=== PATIENT | male | born 1980 | race Caucasian/White ===

== ENCOUNTER 2023-10-28 07:28 | Inpatient (IN) | payer OTHER, MEDICAID ==
[~2023-10-28] VITALS: Ht 185.4 cm; Wt 93.0 kg
[2023-10-28] MEDS: MORPHINE SULFATE 4 MG/ML INJ (FOR IV/IM USE) IV STA (08:32)
[2023-10-28] MEDS: PANTOPRAZOLE SODIUM 40 MG/VIAL IV STA (08:32)
[2023-10-28] MEDS: ONDANSETRON HCL 4MG/2ML INJ IV STA (08:34)
[2023-10-28] MEDS: SODIUM CHLORIDE 0.9% 1,000 ML IV ONE (08:35)
[2023-10-28 08:41] LABS: HEMATOCRIT. 33.2 % (42.0-52.0); HEMOGLOBIN. 10.9 g/dL (14.0-18.0); MEAN CORPUSCULAR HEMOGLOBIN 27.6 pg (28.0-32.0); MEAN CORPUSCULAR HGB CONC 32.8 g/dL (31.0-37.0); MEAN PLATELET VOLUME 6.5 fl (7.4-10.4); PLATELET 897 x1000/uL (130-400); RED BLOOD CELL COUNT 3.95 mill/uL (4.7-6.1); RED CELL DISTRIBUTION WIDTH 21.5 % (11.6-14.6); WHITE BLOOD COUNT 24.3 x1000/uL (4.5-11.0)
[2023-10-28 08:43] LABS: DIFFERENTIAL COMMENT 1
[2023-10-28 08:51] LABS: PROTHROMBIN TIME 11.1 sec (9.6-11.0)
[2023-10-28] MEDS: OCTREOTIDE ACETATE 50 MCG/ML 1ML IV ONE (08:51)
[2023-10-28] MEDS: OCTREOTIDE 1,000 MCG in SODIUM CHLORIDE 0.9% 100 ML IV ONE ×2 (09:00→09:19)
[2023-10-28] MEDS: CEFTRIAXONE 2GM/50ML 50 ML IV STA (09:31)
[2023-10-28 09:35] LABS: LACTIC ACID 2.3 mmol/L (0.4-2.0)
[2023-10-28 10:10] LABS: NUCLEATED RED BLOOD CELLS 1 /100 WBC; PLATELET ESTIMATE INCREASED
[2023-10-28 10:11] LABS: ANISOCYTOSIS 3+
[2023-10-28 10:51] LABS: CHLORIDE 102 mEq/L (98-107); POTASSIUM 4.6 mEq/L (3.5-5.1); SODIUM 134 mEq/L (136-145)
[2023-10-28 10:52] LABS: CARBON DIOXIDE 28 mEq/L (21-32)
[2023-10-28 10:53] LABS: CALCIUM 8.6 mg/dL (8.7-10.4)
[2023-10-28 10:57] LABS: CREATININE 0.9 mg/dL (0.6-1.3); GLUCOSE 110 mg/dL (70-105)
[2023-10-28 10:58] LABS: UREA NITROGEN BLOOD 18 mg/dL (9-23)
[2023-10-28 10:59] LABS: ALANINE AMINOTRANSFERASE 41 IU/L (10-49); ALBUMIN 2.7 g/dL (3.2-4.8); ASPARTATE AMINOTRANSFERASE 70 IU/L (<34)
[2023-10-28 11:00] LABS: BILIRUBIN DIRECT 0.2 mg/dL (<=3.0); BILIRUBIN TOTAL 0.3 mg/dL (0.1-1.0); PROTEIN TOTAL 4.9 g/dL (6.0-8.3)
[2023-10-28] MEDS ORDERED: IPRATROPIUM/ALBUTEROL 0.5-3(2.5)MG/3ML NEB HHN PRN (12:15)
[2023-10-28] MEDS ORDERED: MAGNESIUM/ALUMINUM HYDROXIDE/SIMETHICONE 30ML UDC PO PRN (12:15)
[2023-10-28] MEDS ORDERED: DOCUSATE SODIUM 100MG CAPSULE PO PRN (12:15)
[2023-10-28] MEDS ORDERED: GUAIFENESIN 200MG/10ML SUGAR FREE UDC PO PRN (12:15)
[2023-10-28] MEDS: ACETAMINOPHEN 325MG TABLET PO PRN (12:55)
[2023-10-28] MEDS: METRONIDAZOLE 500 MG PREMIX 100 ML IV SCH ×2 (13:13→23:37)
[2023-10-28] MEDS: CEFTRIAXONE 1GM/50ML 50 ML IV SCH (14:28)
[2023-10-28] MEDS: KETOROLAC 30MG/ML VIAL IV PRN (16:02)
[2023-10-28] MEDS: SODIUM CHLORIDE 0.9% 1,000 ML IV SCH (16:03)
[2023-10-28] MEDS: ONDANSETRON HCL 4MG/2ML INJ IV PRN (16:03)
[2023-10-28] MEDS ORDERED: BUPRENORPHINE 8MG SL TABLET SL SCH (17:00)
[2023-10-28 17:35] LABS: HEMATOCRIT 30.9 % (42.0-52.0); HEMOGLOBIN 10.3 g/dL (14.0-18.0)
[2023-10-28 19:24] VITALS: BP 91/52; PULSE 74; RESP 22; TEMP 36.72516; O2SAT 99
[2023-10-28 20:00] VITALS: BP 94/55; PULSE 83; RESP 18; TEMP 36.61404; O2SAT 97
[2023-10-28 21:56] LABS: IRON 73 ug/dL (65-175)
[2023-10-28 21:59] LABS: TOTAL IRON BINDING CAPACITY 163 ug/dl (250-425)
[2023-10-28 22:02] LABS: FERRITIN 657 ng/mL (22-322); FOLIC ACID (FOLATE) SERUM > 20.00 ng/mL (>5.38); VITAMIN B12 SERUM 485 pg/mL (211-911)
[2023-10-28 22:16] VITALS: BP 94/55; PULSE 83; RESP 18; TEMP 36.6404
[2023-10-28] MEDS: LORAZEPAM 2MG/ML INJ IV PRN (23:17)
[2023-10-29] VITALS: BP 105/65; PULSE 69; RESP 18; TEMP 36.55848; O2SAT 99
[2023-10-29] MEDS: OCTREOTIDE 1,000 MCG in SODIUM CHLORIDE 0.9% 98 ML IV SCH (01:12)
[2023-10-29] MEDS: BUPRENORPHINE 2MG SL TABLET SL SCH (01:12)
[2023-10-29 04:00] VITALS: BP 91/51; PULSE 72; RESP 18; TEMP 36.3918; O2SAT 99
[2023-10-29 06:30] LABS: ALANINE AMINOTRANSFERASE 27 IU/L (10-49); TRIGLYCERIDE 109 mg/dL (0-150)
[2023-10-29 06:31] LABS: LDL CHOLESTEROL 31 mg/dL (5-100); THYROID STIMULATING HORMONE 1.11 uIU/mL (0.55-4.78)
[2023-10-29 06:32] LABS: ALBUMIN 2.4 g/dL (3.2-4.8); ASPARTATE AMINOTRANSFERASE 26 IU/L (<34); BILIRUBIN TOTAL 0.2 mg/dL (0.1-1.0); CHOLESTEROL 72 mg/dL (<200); HDL CHOLESTEROL 27 mg/dL (>55); PROTEIN TOTAL 4.4 g/dL (6.0-8.3); T4 FREE 0.62 ng/dL (0.89-1.76)
[2023-10-29 06:40] LABS: BILIRUBIN DIRECT < 0.1 mg/dL (<=3.0)
[2023-10-29 06:51] LABS: HEPATITIS B SURFACE ANTIGEN NEGATIVE (Negative)
[2023-10-29 07:03] LABS: BASOPHILS % 0.4 % (0.0-2.0); EOSINOPHILS % 2.7 % (0.0-5.0); HEMATOCRIT. 29.1 % (42.0-52.0); HEMOGLOBIN. 9.7 g/dL (14.0-18.0); LYMPHOCYTES % 29.5 % (20.0-50.0); MEAN CORPUSCULAR HGB CONC 33.2 g/dL (31.0-37.0); MEAN CORPUSCULAR VOLUME 84.3 fL (80.0-94.0); MEAN PLATELET VOLUME 7.3 fl (7.4-10.4); MONOCYTES % 13.4 % (2.0-8.0); PLATELET 629 x1000/uL (130-400); RED BLOOD CELL COUNT 3.45 mill/uL (4.7-6.1); RED CELL DISTRIBUTION WIDTH 22.4 % (11.6-14.6); WHITE BLOOD COUNT 9.6 x1000/uL (4.5-11.0)
[2023-10-29 07:04] LABS: DIFFERENTIAL COMMENT 1
[2023-10-29 07:07] LABS: ADD RBC MORPHOLOGY YES
[2023-10-29 07:11] LABS: HEPATITIS A AB IGM NEGATIVE (Negative)
[2023-10-29 07:12] LABS: HEPATITIS B CORE AB IGM NEGATIVE (Negative); HEPATITIS C AB NON REACTIVE (Neg) (Negative)
[2023-10-29 08:00] VITALS: BP 116/63; PULSE 72; RESP 17; TEMP 36.61404; O2SAT 97
[2023-10-29] MEDS: PANTOPRAZOLE SODIUM 40 MG/VIAL IV SCH (09:39)
[2023-10-29] MEDS: FUROSEMIDE 40MG/4ML VIAL IV SCH (09:39)
[2023-10-29 10:40] LABS: CLARITY URINE CLEAR (CLEAR); COLOR URINE DARK YELLOW (YELLOW); GLUCOSE URINE NEGATIVE (NEGATIVE); KETONES URINE NEGATIVE (NEGATIVE); LEUKOCYTE ESTERASE URINE NEGATIVE (NEGATIVE); NITRITE URINE NEGATIVE (NEGATIVE); OCCULT BLOOD URINE NEGATIVE (NEGATIVE); PH URINE 5.5 (4.5-8.0); PROTEIN URINE NEGATIVE (NEGATIVE); SPECIFIC GRAVITY URINE 1.022 (1.005-1.030); UROBILINOGEN URINE 0.2 E.U./dL (0.2-1.0)
[2023-10-29 11:02] LABS: *AMPHETAMINES SCREEN URINE NEGATIVE (NEGATIVE); *BARBITURATES SCREEN URINE NEGATIVE (NEGATIVE); *BENZODIAZEPINES SCREEN URINE NEGATIVE (NEGATIVE); *COCAINE SCREEN URINE NEGATIVE (NEGATIVE); CANNABINOID URINE SCREEN NEGATIVE (NEGATIVE); METHADONE URINE SCREEN NEGATIVE (NEGATIVE); OPIATES URINE SCREEN PRESUMPTIVE POSITIVE (NEGATIVE); PHENCYCLIDINE URINE SCREEN NEGATIVE (NEGATIVE)
[2023-10-29 11:03] LABS: ECSTASY MDMA SCREEN URINE NEGATIVE (NEGATIVE)
[2023-10-29 12:00] VITALS: BP 108/67; PULSE 75; RESP 19; TEMP 35.61396; O2SAT 99
[2023-10-29] MEDS: CEFTRIAXONE 1GM/50ML 50 ML IV SCH (13:00)
[2023-10-29 13:20] LABS: CARBON DIOXIDE 28 mEq/L (21-32); CHLORIDE 110 mEq/L (98-107); SODIUM 140 mEq/L (136-145)
[2023-10-29 13:25] LABS: CREATININE 0.7 mg/dL (0.6-1.3)
[2023-10-29 13:26] LABS: GLUCOSE 192 mg/dL (70-105); UREA NITROGEN BLOOD 11 mg/dL (9-23)
[2023-10-29] MEDS ORDERED: NALOXONE HCL 0.4MG/ML VIAL IV PRN (15:15)
[2023-10-29 15:34] LABS: ANISOCYTOSIS 3+; PLATELET ESTIMATE INCREASED
[2023-10-29] MEDS: BUPRENORPHINE 8MG SL TABLET SL SCH (17:00)
[2023-10-29] MEDS ORDERED: *PATIENT'S OWN MEDICATION STORAGE XX SCH (18:45)
[2023-10-29 20:00] VITALS: BP 113/64; PULSE 64; RESP 19; TEMP 35.66952; O2SAT 97
[2023-10-29] MEDS ORDERED: FAMO-135 PO (21:48)
[2023-10-29] MEDS ORDERED: ASPI-1497 MT (21:48)
[2023-10-29] MEDS ORDERED: GABA-290 MT (21:48)
[2023-10-29] MEDS ORDERED: QUET200T MT (21:48)
[2023-10-29] MEDS ORDERED: METH-653 MT (21:48)
[2023-10-29] MEDS ORDERED: DESV50TA4 PO (21:48)
[2023-10-29] MEDS ORDERED: HYDR-3992 MT (22:31)
[2023-10-29] MEDS ORDERED: HYDR50TA55 MT (22:31)
[2023-10-29] MEDS ORDERED: BUPR8TAB3 SL (22:31)
[2023-10-29] MEDS ORDERED: ALBU90AE INH (22:31)
[2023-10-29] MEDS ORDERED: CYCL10TA21 MT (22:31)
[2023-10-29] MEDS ORDERED: ONDA-239 PO (22:31)
[2023-10-29] MEDS ORDERED: CELE-116 MT (22:31)
[2023-10-29] MEDS ORDERED: ACET-2708 MT (22:31)
[2023-10-30] VITALS: BP 115/65; PULSE 73; RESP 20; TEMP 36.28068; O2SAT 98
[2023-10-30 04:00] VITALS: BP 105/49; PULSE 68; RESP 19; TEMP 36.05844; O2SAT 98
[2023-10-30 08:00] VITALS: BP 145/79; PULSE 92; RESP 18; TEMP 36.9474; O2SAT 100
[2023-10-30 12:00] VITALS: BP 114/70; PULSE 82; RESP 18; TEMP 35.89176; O2SAT 98
[2023-10-30] MEDS: HYDROXYZINE 25MG TABLET PO PRN (13:23)
[2023-10-30] MEDS: GABAPENTIN 300MG CAPSULE PO SCH (13:25)
[2023-10-30] MEDS ORDERED: HYDROXYZINE 25MG TABLET PO PRN (15:15)
[2023-10-30] MEDS: TAMSULOSIN HCL 0.4MG SR CAPSULE PO SCH (15:15)
[2023-10-30 16:00] VITALS: BP 101/62; PULSE 90; RESP 18; TEMP 37.00296; O2SAT 98
[2023-10-30] MEDS: THIAMINE HCL 100MG TABLET PO SCH (18:05)
[2023-10-30 20:00] VITALS: BP 96/52; PULSE 74; RESP 16; TEMP 36.3918; O2SAT 99
[2023-10-30] MEDS: QUETIAPINE FUMARATE 200MG TABLET PO SCH (20:44)
[2023-10-30] MEDS ORDERED: METHOCARBAMOL 750MG TABLET PO SCH (22:00)
[2023-10-30 22:10] LABS: HEMATOCRIT 30.9 % (42.0-52.0); HEMOGLOBIN 9.9 g/dL (14.0-18.0); MEAN CORPUSCULAR HEMOGLOBIN 27.5 pg (28.0-32.0); MEAN CORPUSCULAR HGB CONC 32.1 g/dL (31.0-37.0); MEAN CORPUSCULAR VOLUME 85.5 fL (80.0-94.0); RED BLOOD CELL COUNT 3.62 mill/uL (4.7-6.1); RED CELL DISTRIBUTION WIDTH 21.5 % (11.6-14.6); WHITE BLOOD COUNT 12.5 x1000/uL (4.5-11.0)
[2023-10-30 22:15] LABS: CARBON DIOXIDE 29 mEq/L (21-32); CHLORIDE 106 mEq/L (98-107); POTASSIUM 4.4 mEq/L (3.5-5.1); SODIUM 140 mEq/L (136-145)
[2023-10-30 22:16] LABS: CALCIUM 8.1 mg/dL (8.7-10.4)
[2023-10-30 22:20] LABS: CREATININE 0.9 mg/dL (0.6-1.3); GLUCOSE 213 mg/dL (70-105)
[2023-10-30 22:21] LABS: UREA NITROGEN BLOOD 18 mg/dL (9-23)
[2023-10-30 22:22] LABS: ALANINE AMINOTRANSFERASE 26 IU/L (10-49); ALBUMIN 2.5 g/dL (3.2-4.8); ASPARTATE AMINOTRANSFERASE 20 IU/L (<34)
[2023-10-30 22:23] LABS: BILIRUBIN TOTAL < 0.2 mg/dL (0.1-1.0); PHOSPHORUS 3.3 mg/dL (2.5-4.9); PROTEIN TOTAL 4.4 g/dL (6.0-8.3)
[2023-10-30 22:30] LABS: BILIRUBIN DIRECT < 0.1 mg/dL (<=3.0)
[2023-10-30 22:35] LABS: PLATELET 674 x1000/uL (130-400)
[2023-10-30 22:40] LABS: HEPATITIS B SURFACE ANTIGEN NEGATIVE (Negative)
[2023-10-30] MEDS: GABAPENTIN 400MG CAPSULE PO SCH (22:55)
[2023-10-30 23:01] LABS: HEPATITIS A AB IGM NEGATIVE (Negative)
[2023-10-30 23:02] LABS: HEPATITIS B CORE AB IGM NEGATIVE (Negative); HEPATITIS C AB NON REACTIVE (Neg) (Negative)
[2023-10-30] MEDS: METHOCARBAMOL 500MG TABLET PO SCH (23:30)
[2023-10-31] VITALS: BP 111/57; PULSE 82; RESP 19; TEMP 36.6696; O2SAT 98
[2023-10-31 04:00] VITALS: BP 107/62; PULSE 80; RESP 18; TEMP 36.55848; O2SAT 99
[2023-10-31 06:58] LABS: ALANINE AMINOTRANSFERASE 29 IU/L (10-49)
[2023-10-31 06:59] LABS: ALBUMIN 2.5 g/dL (3.2-4.8); ASPARTATE AMINOTRANSFERASE 22 IU/L (<34); BILIRUBIN TOTAL 0.2 mg/dL (0.1-1.0); PROTEIN TOTAL 4.7 g/dL (6.0-8.3)
[2023-10-31 07:04] LABS: BILIRUBIN DIRECT < 0.1 mg/dL (<=3.0)
[2023-10-31 07:08] LABS: HEPATITIS B SURFACE ANTIGEN NEGATIVE (Negative)
[2023-10-31 07:28] LABS: HEPATITIS A AB IGM NEGATIVE (Negative)
[2023-10-31 07:29] LABS: HEPATITIS B CORE AB IGM NEGATIVE (Negative)
[2023-10-31 07:30] LABS: HEPATITIS C AB NON REACTIVE (Neg) (Negative)
[2023-10-31 08:00] VITALS: BP 108/71; PULSE 105; RESP 18; TEMP 36.00288; O2SAT 98
[2023-10-31 08:11] LABS: ALPHA FETOPROTEIN TUMOR MARKER < 1.8 ng/mL (0.0-6.9); CARCINOEMBRYONIC AG - SEND OUT 7.9 ng/mL (0.0-4.7)
[2023-10-31 11:11] LABS: CHLORIDE 109 mEq/L (98-107); POTASSIUM 4.3 mEq/L (3.5-5.1); SODIUM 142 mEq/L (136-145)
[2023-10-31 11:12] LABS: CARBON DIOXIDE 29 mEq/L (21-32)
[2023-10-31 11:13] LABS: CALCIUM 8.2 mg/dL (8.7-10.4)
[2023-10-31 11:17] LABS: CREATININE 0.9 mg/dL (0.6-1.3); GLUCOSE 80 mg/dL (70-105)
[2023-10-31 11:18] LABS: UREA NITROGEN BLOOD 17 mg/dL (9-23)
[2023-10-31] MEDS ORDERED: *PATIENT'S OWN MEDICATION STORAGE XX SCH (12:30)
[2023-10-31 13:51] LABS: BASOPHILS % 0.7 % (0.0-2.0); EOSINOPHILS % 2.7 % (0.0-5.0); HEMATOCRIT. 34.1 % (42.0-52.0); HEMOGLOBIN. 11.1 g/dL (14.0-18.0); LYMPHOCYTES % 35.9 % (20.0-50.0); MEAN CORPUSCULAR HEMOGLOBIN 28.1 pg (28.0-32.0); MEAN CORPUSCULAR HGB CONC 32.5 g/dL (31.0-37.0); MEAN CORPUSCULAR VOLUME 86.5 fL (80.0-94.0); MONOCYTES % 12.6 % (2.0-8.0); NEUTROPHILS % 48.1 % (40.0-76.0); RED BLOOD CELL COUNT 3.95 mill/uL (4.7-6.1); RED CELL DISTRIBUTION WIDTH 22.3 % (11.6-14.6); WHITE BLOOD COUNT 10.6 x1000/uL (4.5-11.0)
[2023-10-31 13:52] LABS: DIFFERENTIAL COMMENT 1
[2023-10-31 13:53] LABS: PLATELET 689 x1000/uL (130-400)
[2023-10-31] MEDS: LEVOFLOXACIN 500MG TABLET PO SCH (14:49)
[2023-10-31] MEDS: MAGNESIUM OXIDE 400MG TABLET PO SCH (14:49)
[2023-10-31] MEDS: LACTULOSE 20G/30ML UDC PO NR (17:55)
[2023-10-31 20:00] VITALS: BP 92/47; PULSE 95; RESP 20; TEMP 36.55848; O2SAT 100
[2023-10-31] MEDS: KETOROLAC 15MG/ML VIAL IV NR (21:29)
[2023-10-31] MEDS: METRONIDAZOLE 250MG TABLET PO SCH (21:42)
[2023-11-01] VITALS: BP 94/47; PULSE 75; RESP 20; TEMP 36.44736; O2SAT 96
[2023-11-01 04:00] VITALS: BP 92/53; PULSE 89; RESP 20; TEMP 36.44736; O2SAT 95
[2023-11-01 15:53] VITALS: BP 100/59; PULSE 67; TEMP 98.3; O2SAT 98
[2023-11-01 18:17] LABS: BASOPHILS % 0.6 % (0.0-2.0); EOSINOPHILS % 1.3 % (0.0-5.0); HEMATOCRIT. 31.1 % (42.0-52.0); LYMPHOCYTES % 21.9 % (20.0-50.0); MEAN CORPUSCULAR HEMOGLOBIN 27.8 pg (28.0-32.0); MEAN CORPUSCULAR VOLUME 86.7 fL (80.0-94.0); MEAN PLATELET VOLUME 7.4 fl (7.4-10.4); MONOCYTES % 8.8 % (2.0-8.0); NEUTROPHILS % 67.4 % (40.0-76.0); PLATELET 639 x1000/uL (130-400); RED BLOOD CELL COUNT 3.59 mill/uL (4.7-6.1); RED CELL DISTRIBUTION WIDTH 22.4 % (11.6-14.6); WHITE BLOOD COUNT 15.8 x1000/uL (4.5-11.0)
[2023-11-01 18:20] LABS: DIFFERENTIAL COMMENT 1
[2023-11-01 18:26] LABS: CHLORIDE 106 mEq/L (98-107); SODIUM 139 mEq/L (136-145)
[2023-11-01 18:27] LABS: CALCIUM 7.9 mg/dL (8.7-10.4); CARBON DIOXIDE 29 mEq/L (21-32)
[2023-11-01 18:32] LABS: GLUCOSE 201 mg/dL (70-105); UREA NITROGEN BLOOD 20 mg/dL (9-23)
[2023-11-01 18:34] LABS: BILIRUBIN TOTAL 0.2 mg/dL (0.1-1.0); PHOSPHORUS 3.6 mg/dL (2.5-4.9)
[2023-11-01 18:35] LABS: AMMONIA 39 uMol/L (<32)
[2023-11-01] MEDS ORDERED: LACTULOSE 20G/30ML UDC PO SCH (21:00)
== END 2023-11-01 18:25 | disposition home or self-care (01) | DRG 872 ==
LOC: ER 07:47 → 5WST 09:10 → 8WST 19:33 → 6EST 10-31 17:34
PROVIDERS: ADMIT Internal Medicine; ATTEND Internal Medicine
DX: A41.9 Sepsis, unspecified organism (principal); K92.0 Hematemesis; S36.898A Other injury of other intra-abdominal organs, initial encounter; Z59.00 Homelessness unspecified; K86.1 Other chronic pancreatitis; I50.9 Heart failure, unspecified; I11.0 Hypertensive heart disease with heart failure; E78.5 Hyperlipidemia, unspecified; D64.9 Anemia, unspecified; D75.839 Thrombocytosis, unspecified; F19.10 Other psychoactive substance abuse, uncomplicated; K70.30 Alcoholic cirrhosis of liver without ascites; E83.42 Hypomagnesemia; K31.9 Disease of stomach and duodenum, unspecified; E66.9 Obesity, unspecified; F41.9 Anxiety disorder, unspecified; G89.29 Other chronic pain; M54.50 Low back pain, unspecified; F10.10 Alcohol abuse, uncomplicated; R19.7 Diarrhea, unspecified; Y90.9 Presence of alcohol in blood, level not specified; X58.XXXA Exposure to other specified factors, initial encounter; Z79.899 Other long term (current) drug therapy; Y93.89 Activity, other specified; Y92.89 Other specified places as the place of occurrence of the external cause; Y99.8 Other external cause status; Z90.81 Acquired absence of spleen; Z91.199 Patient's noncompliance with other medical treatment and regimen due to unspecified reason; Z98.84 Bariatric surgery status; Z68.27 Body mass index [BMI] 27.0-27.9, adult
CPT/HCPCS: 36415; 71045; 74176; 76700; 80048; 80061; 80076; 80305; 81003; 82105; 82140; 82247; 82378; 82607; 82728; 82746; 83540; 83550; 83605; 83735; 83880; 84100; 84145; 84439; 84443; 85014; 85018; 85025; 85027; 85044; 86301; 86705; 86709; 86850; 86900; 87340; 97116; 97162; 97166; 99291; J0696; J1885; J1940; J2060; J2270; J2354; J2405; J2470; J3490; J7030; J7050